=== PATIENT | female | born 1965 | race Caucasian/White ===

== ENCOUNTER → 2016-11-09 | Outpatient (REF) ==
[~2016-11-09] MED LIST: GLUCOPHAGE500 MG/TAB PO; GLUCOTROL 5M5 MG/TAB PO; IRON PO; MULTI VITAMINS1 TAB PO; NORCO 325 MG-51 TAB PO; SYNTHROID0.088 MG/T PO; VICTOZA6 MG/ML SC
[2016-11-09 15:47] LABS: THYROID STIMULATING HORMONE 2.02 uIU/mL (0.465-4.680)
== END ==
LOC: ZLAB.WCH 14:58
PROVIDERS: Internal Medicine
DX: Z01.89 Encounter for other specified special examinations (principal)

== ENCOUNTER → 2016-11-14 | Outpatient (CLI) | payer BC | LOC: SUN.DIA 13:29 | DX: E11.65 Type 2 diabetes mellitus with hyperglycemia (principal); Z79.84 Long term (current) use of oral hypoglycemic drugs; Z68.1 Body mass index [BMI] 19.9 or less, adult; Z71.3 Dietary counseling and surveillance; Z87.891 Personal history of nicotine dependence | CPT/HCPCS: G0108 ==

== ENCOUNTER → 2016-11-15 | Outpatient (CLI) | payer BC | LOC: SUN.DIA 13:08 | DX: E11.65 Type 2 diabetes mellitus with hyperglycemia (principal); Z79.4 Long term (current) use of insulin; Z71.3 Dietary counseling and surveillance | CPT/HCPCS: G0108 ==

== ENCOUNTER → 2016-11-28 | Outpatient (CLI) | payer BC | LOC: SUN.DIA 10:10 | DX: E11.65 Type 2 diabetes mellitus with hyperglycemia (principal); Z68.1 Body mass index [BMI] 19.9 or less, adult; Z79.4 Long term (current) use of insulin; Z71.3 Dietary counseling and surveillance; E78.5 Hyperlipidemia, unspecified | CPT/HCPCS: G0108 ==

== ENCOUNTER → 2017-04-12 | Outpatient (REF) ==
[2017-04-12 18:51] LABS: THYROID STIMULATING HORMONE 1.84 uIU/mL (0.465-4.680)
== END ==
LOC: ZLAB.WCH 18:07
PROVIDERS: Internal Medicine
DX: Z01.89 Encounter for other specified special examinations (principal)

== ENCOUNTER → 2017-07-12 | Outpatient (REF) ==
[2017-07-12 15:03] LABS: TOTAL IRON BINDING CAPACITY 308 ug/dL (265-497)
[2017-07-12 15:33] LABS: FERRITIN 34 ng/mL (11-264)
== END ==
LOC: ZLAB.WCH 14:29
PROVIDERS: Internal Medicine
DX: Z01.89 Encounter for other specified special examinations (principal)

== ENCOUNTER → 2018-02-19 | Outpatient (CLI) | payer BC ==
[2018-02-19] VITALS (15 sets, daily range): BP systolic 121–161; BP diastolic 56–76; PULSE 94–112
[~2018-02-19] VITALS: Ht 160 cm; Wt 60.0 kg
[~2018-02-19] MED LIST changes: +CELEXA 20MG20 MG/TAB PO; +LANTUS100 U/ML SQ; +NOVOLOG 100U100 U/M1 SQ; +XYZAL5 MG PO
== END ==
LOC: COL.RAD 02-11 10:00
DX: K76.0 Fatty (change of) liver, not elsewhere classified (principal); I85.00 Esophageal varices without bleeding; D69.6 Thrombocytopenia, unspecified; D64.9 Anemia, unspecified; E11.9 Type 2 diabetes mellitus without complications
CPT/HCPCS: J2250; J3010

== ENCOUNTER → 2018-09-12 | Outpatient (CLI) | payer BC | LOC: COL.RAD 09-10 09:45 | DX: K74.60 Unspecified cirrhosis of liver (principal); D69.6 Thrombocytopenia, unspecified; R16.1 Splenomegaly, not elsewhere classified ==

== ENCOUNTER 2018-10-27 20:08 | Emergency (ER) | payer BC ==
[~2018-10-27] VITALS: Ht 162.6 cm; Wt 56.8 kg
[2018-10-27 20:56] LABS: GASTROCCULT POSITIVE
[2018-10-27 21:07] LABS: HEMATOCRIT 21.9 % (37.0-47.0); HEMOGLOBIN 7.3 g/dl (12.5-16.0); MEAN CELL VOLUME 117 fl (80.0-100.0); MEAN CORPUSCULAR HEMOGLOBIN 39 pg (27.0-31.0); MEAN CORPUSCULAR HGB CONC 33 g/dl (33.0-37.0); MEAN PLATELET VOLUME 10.8 fl (7.4-10.4); RED BLOOD COUNT 1.87 M/mm3 (4.10-5.30); REDCELL DISTRIBUTION WIDTH-CV 15.9 % (11.5-14.5)
[2018-10-27 21:08] LABS: PLATELET COUNT 54 K/mm3 (130-400)
[2018-10-27] MEDS ORDERED: ATIVAN 0.50.5 MG/TAB PO (21:09)
[2018-10-27] MEDS ORDERED: ALDACTONE50 MG PO (21:10)
[2018-10-27] MEDS ORDERED: KLOR-CON M2020 MEQ PO (21:11)
[2018-10-27] MEDS ORDERED: LASIX 20MG TABL20 MG PO (21:11)
[2018-10-27 21:13] LABS: INR 2.2 (0.8-3.0); PROTHROMBIN TIME 24.5 SECONDS (9.7-12.8)
[2018-10-27 21:18] LABS: ALBUMIN 2.2 gm/dL (3.5-5.0); BILIRUBIN,TOTAL 4.2 mg/dL (0.0-1.0); CALCIUM 7.8 mg/dL (8.4-10.2); CREATININE, serum 0.74 mg/dL (0.52-1.25); POTASSIUM 4.5 mmol/L (3.4-5.0); TOTAL PROTEIN 5.4 gm/dL (6.4-8.2)
[2018-10-27 21:22] VITALS: BP 142/63; PULSE 120; TEMP 97.8
[2018-10-27 21:34] VITALS: BP 142/64; PULSE 125; TEMP 98.2
[2018-10-27 21:46] VITALS: BP 156/68; PULSE 122; TEMP 98.4
[2018-10-27 22:04] VITALS: BP 169/68; PULSE 122
[2018-10-27 22:21] LABS: ANISOCYTOSIS 1+; BAND 1 % (0-10); BASOPHIL 1 % (0-2); EOSINOPHIL 2 % (0-4); LYMPHOCYTE 14 % (20.0-51.0); NEUTROPHILS 79 % (42.0-75.2); PLATELET ESTIMATE DECREASED (NORMAL)
[2018-10-27 22:22] LABS: OVALOCYTES 1+; TEAR DROP CELLS 2+
== END 2018-10-27 22:16 | disposition short-term general hospital (02) ==
LOC: COL.ER 20:08
PROVIDERS: Emergency Medicine
DX: I85.00 Esophageal varices without bleeding (principal); K92.2 Gastrointestinal hemorrhage, unspecified; R57.1 Hypovolemic shock
CPT/HCPCS: C9113; J2354; J2405; J7030; J7040; P9016

== ENCOUNTER 2019-01-03 17:27 | Emergency (ER) | payer BC ==
[~2019-01-03] VITALS: Ht 162.6 cm; Wt 58.2 kg
[~2019-01-03 17:27] MED LIST changes: +ALDACTONE50 MG PO; +ATIVAN 0.50.5 MG/TAB PO; +KLOR-CON M2020 MEQ PO; +LASIX 20MG TABL20 MG PO
[2019-01-03 17:34] VITALS: TEMP 98.8
[2019-01-03] MEDS ORDERED: CORGARD20 MG PO (19:17)
[2019-01-03 20:11] LABS: BASO % 0.4 % (0.0-2.0); EOS % 0.4 % (0-4.0); GRAN # 1.6 (1.4-6.5); GRAN % 67.5 % (42.2-75.2); LYMPH # 0.4 (1.2-3.4); LYMPH % 16.9 % (20.0-51.0); MEAN CELL VOLUME 114 fl (80.0-100.0); MEAN CORPUSCULAR HGB CONC 35 g/dl (33.0-37.0); MEAN PLATELET VOLUME 11.9 fl (7.4-10.4); MONO # 0.3 (0.1-0.6); RED BLOOD COUNT 2.29 M/mm3 (4.10-5.30); REDCELL DISTRIBUTION WIDTH-CV 17.8 % (11.5-14.5)
[2019-01-03 20:22] LABS: ALBUMIN 2.5 gm/dL (3.5-5.0); C-REACTIVE PROTEIN 1.8 mg/dL (0.0-0.9); CALCIUM 7.8 mg/dL (8.4-10.2); CREATININE, serum 0.81 (0.52-1.25); POTASSIUM 3.8 mmol/L (3.4-5.0); TOTAL PROTEIN 6.1 gm/dL (6.4-8.2)
[2019-01-03 20:33] LABS: HEMATOCRIT 26.1 % (37.0-47.0); HEMOGLOBIN 9.1 g/dl (12.5-16.0); MEAN CORPUSCULAR HEMOGLOBIN 40 pg (27.0-31.0)
[2019-01-03 20:35] LABS: PLATELET COUNT 30 K/mm3 (130-400)
[2019-01-03] MEDS ORDERED: VANCOCIN H125 MG/CAP PO (21:32)
[2019-01-03 21:54] VITALS: BP 116/53; PULSE 80
== END 2019-01-03 22:10 | disposition home or self-care (01) ==
LOC: COL.ER 17:27
PROVIDERS: Emergency Medicine
DX: A04.72 Enterocolitis due to Clostridium difficile, not specified as recurrent (principal); D69.6 Thrombocytopenia, unspecified; K72.90 Hepatic failure, unspecified without coma; J06.9 Acute upper respiratory infection, unspecified; E11.9 Type 2 diabetes mellitus without complications; Z79.4 Long term (current) use of insulin
CPT/HCPCS: J1815

== ENCOUNTER 2019-07-04 15:42 | Outpatient (RCR) | payer BC ==
[~2019-07-04] VITALS: Ht 162.6 cm; Wt 52.8 kg
[~2019-07-04 15:42] MED LIST changes: +CORGARD20 MG PO; +VANCOCIN H125 MG/CAP PO
[2019-07-04 16:00] VITALS: BP 120/56; PULSE 82; TEMP 98.1
[2019-07-04] MEDS ORDERED: PROGRAF5 MG PO (16:33)
[2019-07-04] MEDS ORDERED: PREDNISONE 5MG5 MG PO (16:34)
[2019-07-04] MEDS ORDERED: NORVASC 5MG5 MG/TAB PO (16:35)
[2019-07-04] MEDS ORDERED: MELATIN 3 MG-11 TAB PO (16:36)
[2019-07-04] MEDS ORDERED: NS 10ML VIAL 1010 ML IJ (16:36)
[2019-07-04] MEDS ORDERED: FLEXERIL5 MG PO (16:38)
[2019-07-04] MEDS ORDERED: SEPTRA DS 8001 TAB PO (16:39)
[2019-07-04] MEDS ORDERED: PROTONIX 40MG T40 MG PO (16:40)
[2019-07-04] MEDS ORDERED: CALCIUM CARB W/1 TA1 PO (16:40)
[2019-07-04] MEDS ORDERED: TYLENOL 325MG325 MG PO (16:41)
[2019-07-04 17:51] VITALS: BP 159/73; PULSE 87; TEMP 98.4
[2019-07-05 08:15] LABS: CALCIUM 9.4 mg/dL (8.4-10.2); CREATININE, serum 1.43 (0.52-1.25); POTASSIUM 4.7 mmol/L (3.4-5.0)
== END 2019-07-05 08:54 | disposition home or self-care (01) ==
LOC: EUO 15:42
PROVIDERS: Internal Medicine
DX: E86.0 Dehydration (principal); Z94.4 Liver transplant status
CPT/HCPCS: J7030

== ENCOUNTER 2019-08-30 23:53 | Emergency (ER) | payer BC ==
[~2019-08-30] VITALS: Ht 162.6 cm; Wt 50.9 kg
[~2019-08-30 23:53] MED LIST changes: +CALCIUM CARB W/1 TA1 PO; +FLEXERIL5 MG PO; +MELATIN 3 MG-11 TAB PO; +NORVASC 5MG5 MG/TAB PO; +NS 10ML VIAL 1010 ML IJ; +PREDNISONE 5MG5 MG PO; +PROGRAF5 MG PO; +PROTONIX 40MG T40 MG PO; +SEPTRA DS 8001 TAB PO; +TYLENOL 325MG325 MG PO
[2019-08-31 01:12] LABS: ALBUMIN 4.2 gm/dL (3.5-5.0); BILIRUBIN,TOTAL 0.3 mg/dL (0.0-1.0); C-REACTIVE PROTEIN 0.5 mg/dL (0.0-0.9); CREATININE, serum 1.62 (0.52-1.25); MAGNESIUM 2.1 mg/dL (1.6-2.3); PHOSPHOROUS 4.7 mg/dL (2.5-4.5); POTASSIUM 4.6 mmol/L (3.4-5.0); TOTAL PROTEIN 7.4 gm/dL (6.4-8.2)
[2019-08-31 01:13] LABS: MEAN CELL VOLUME 104 fl (80.0-100.0); MEAN CORPUSCULAR HEMOGLOBIN 35 pg (27.0-31.0); MEAN CORPUSCULAR HGB CONC 34 g/dl (33.0-37.0); MEAN PLATELET VOLUME 9.3 fl (7.4-10.4); PLATELET COUNT 138 K/mm3 (130-400); RED BLOOD COUNT 2.88 M/mm3 (4.10-5.30); REDCELL DISTRIBUTION WIDTH-CV 15.9 % (11.5-14.5)
[2019-08-31 01:40] LABS: HEMATOCRIT 29.8 % (37.0-47.0)
[2019-08-31 02:00] LABS: BAND 3 % (0-10); EOSINOPHIL 6 % (0-4); NEUTROPHILS 70 % (42.0-75.2); PLATELET ESTIMATE NORMAL (NORMAL)
[2019-08-31 02:01] LABS: LYMPHOCYTE 20 % (20.0-51.0)
[2019-08-31 02:24] LABS: INR 0.9 (0.8-3.0)
[2019-08-31 02:27] LABS: PARTIAL THROMBOPLASTIN TIME 27.7 SECONDS (26.0-37.0)
[2019-08-31 02:48] LABS: COLLECTION METHOD CLEAN CATCH
[2019-08-31 02:50] LABS: LACTIC ACID 1.6 mmol/L (0.4-2.0)
[2019-08-31 02:53] LABS: PH 5 (5-8); SQUAMOUS EPITHELIAL None Seen /hpf; URINE APPEARANCE Clear; URINE BACTERIA None Seen /hpf; URINE BILIRUBIN Negative (NEGATIVE); URINE BLOOD Negative (NEGATIVE); URINE COLOR Straw; URINE GLUCOSE Negative (NEGATIVE); URINE KETONE Negative (NEGATIVE); URINE LEUKOCYTE ESTERASE Negative (NEGATIVE); URINE NITRATE Negative (NEGATIVE); URINE PROTEIN(semi-quant) Negative (NEGATIVE); URINE RBC 0-2 /hpf; URINE UROBILINOGEN Negative (NEGATIVE)
[2019-08-31] MEDS ORDERED: VALTREX1 GM PO (08:52)
[2019-08-31 09:08] VITALS: BP 145/61; PULSE 97; TEMP 98.2
== END 2019-08-31 09:10 | disposition short-term general hospital (02) ==
LOC: COL.ER 23:53
PROVIDERS: Emergency Medicine
DX: B02.29 Other postherpetic nervous system involvement (principal)
CPT/HCPCS: J1170; J7030

== ENCOUNTER 2022-05-25 21:41 | Emergency (ER) | payer MEDICARE, BC ==
[~2022-05-25] VITALS: Ht 160 cm; Wt 54.5 kg
[~2022-05-25 21:41] MED LIST changes: +VALTREX1 GM PO
[2022-05-25 22:33] LABS: HEMOGLOBIN 11.6 g/dl (12.5-16.0); MEAN CELL VOLUME 95 fl (80.0-100.0); MEAN CORPUSCULAR HEMOGLOBIN 34 pg (27-31); MEAN CORPUSCULAR HGB CONC 36 g/dl (33.0-37.0); MEAN PLATELET VOLUME 9.1 fl (7.4-10.4); PLATELET COUNT 152 K/mm3 (130-400); RED BLOOD COUNT 3.45 M/mm3 (4.10-5.30); REDCELL DISTRIBUTION WIDTH-CV 13.2 % (11.5-14.5)
[2022-05-25 22:35] LABS: HEMATOCRIT 32.7 % (37.0-47.0)
[2022-05-25 22:52] LABS: ALBUMIN 3.7 gm/dL (3.5-5.0); CALCIUM 9.3 mg/dL (8.4-10.2); CREATININE, serum 1.1 mg/dL (0.57-1.11); POTASSIUM 3.6 mmol/L (3.5-4.5); TOTAL PROTEIN 7.3 gm/dL (6.2-8.1)
[2022-05-25 22:58] LABS: BAND 19 % (0-10); EOSINOPHIL 1 % (0-4); LYMPHOCYTE 15 % (20.0-51.0); METAMYELOCYTE 3 % (0-0); NEUTROPHILS 56 % (42.0-75.2); PLATELET ESTIMATE NORMAL (NORMAL)
[2022-05-25 23:19] LABS: COLLECTION METHOD CLEAN CATCH
[2022-05-25 23:27] LABS: SQUAMOUS EPITHELIAL None Seen /hpf (0-10); URINE BACTERIA None Seen /hpf (NONE SEEN)
[2022-05-25 23:28] LABS: URINE APPEARANCE Clear (CLEAR/HAZY); URINE BLOOD TRACE-INTACT (NEGATIVE); URINE COLOR Yellow (YELLOW); URINE GLUCOSE Negative (NEGATIVE); URINE KETONE Negative (NEGATIVE); URINE NITRATE Negative (NEGATIVE); URINE PROTEIN(semi-quant) TRACE (NEGATIVE); URINE UROBILINOGEN 0.2 E.U/dL (0.2-1.0)
[2022-05-26] MEDS ORDERED: PROGRAF 0.5MG0.5 MG PO (01:39)
[2022-05-26] MEDS ORDERED: VITAMIN D31000 I1 PO (01:40)
[2022-05-26] MEDS ORDERED: B-12 250 MCG (01:40)
[2022-05-26] MEDS ORDERED: CALCIUM 600MG+D1 TAB PO (01:41)
[2022-05-26 06:28] VITALS: TEMP 98.4
[2022-05-26 10:08] VITALS: BP 130/66; PULSE 108
== END 2022-05-26 10:15 | disposition short-term general hospital (02) ==
LOC: COL.ER 21:41
PROVIDERS: Emergency Medicine
DX: R50.9 Fever, unspecified (principal); R74.01 Elevation of levels of liver transaminase levels; D72.819 Decreased white blood cell count, unspecified; Z88.0 Allergy status to penicillin; Z94.4 Liver transplant status; Z92.25 Personal history of immunosuppression therapy; Z20.822 Contact with and (suspected) exposure to COVID-19
CPT/HCPCS: J0692; J3370; J7030; J7050; J7507

== ENCOUNTER 2022-06-28 15:10 | Emergency (ER) | payer MEDICARE, BC ==
[~2022-06-28] VITALS: Ht 160 cm; Wt 57.3 kg
[~2022-06-28 15:10] MED LIST changes: +B-12 250 MCG; +CALCIUM 600MG+D1 TAB PO; +PROGRAF 0.5MG0.5 MG PO; +VITAMIN D31000 I1 PO
[2022-06-28 15:21] VITALS: TEMP 97.3
[2022-06-28 17:07] LABS: ALBUMIN 2.6 gm/dL (3.5-5.0); BILIRUBIN,TOTAL 1.1 mg/dL (0.2-1.2); C-REACTIVE PROTEIN 4.5 mg/dL (0.00-0.50); CALCIUM 8.4 mg/dL (8.4-10.2); CREATININE, serum 1.48 mg/dL (0.57-1.11); POTASSIUM 4.6 mmol/L (3.5-4.5); TOTAL PROTEIN 7.2 gm/dL (6.2-8.1)
[2022-06-28 17:12] LABS: TROPONIN-I 0.01 ng/mL (0.00-0.033)
[2022-06-28 17:12] LABS: MEAN CELL VOLUME 92 fl (80.0-100.0); MEAN CORPUSCULAR HEMOGLOBIN 31 pg (27-31); MEAN CORPUSCULAR HGB CONC 33 g/dl (33.0-37.0); MEAN PLATELET VOLUME 9.6 fl (7.4-10.4); PLATELET COUNT 256 K/mm3 (130-400); RED BLOOD COUNT 3.61 M/mm3 (4.10-5.30); REDCELL DISTRIBUTION WIDTH-CV 18.2 % (11.5-14.5)
[2022-06-28 17:13] LABS: HEMATOCRIT 33.1 % (37.0-47.0)
[2022-06-28 17:15] VITALS: BP 162/63; PULSE 92
[2022-06-28 17:22] LABS: COLLECTION METHOD CLEAN CATCH
[2022-06-28 17:32] LABS: PH 5.5 (5.0-8.5); URINE APPEARANCE Clear (CLEAR/HAZY); URINE BLOOD TRACE-INTACT (NEGATIVE); URINE COLOR Yellow (YELLOW); URINE GLUCOSE Negative (NEGATIVE); URINE KETONE Negative (NEGATIVE); URINE NITRATE Negative (NEGATIVE); URINE PROTEIN(semi-quant) Negative (NEGATIVE); URINE UROBILINOGEN 0.2 E.U/dL (0.2-1.0)
[2022-06-28 17:38] LABS: SQUAMOUS EPITHELIAL 0-2 /hpf (0-10); URINE BACTERIA None Seen /hpf (NONE SEEN); URINE RBC 0-2 /hpf (0-2)
[2022-06-28 17:52] LABS: ANISOCYTOSIS 2+; BAND 3 % (0-10); HYPOCHROMIA 1+; LYMPHOCYTE 39 % (20.0-51.0); NEUTROPHILS 48 % (42.0-75.2); NUCLEATED RED BLOOD CELL 1 (0-6); PLATELET ESTIMATE NORMAL (NORMAL)
== END 2022-06-28 17:25 | disposition home or self-care (01) ==
LOC: COL.ER 15:10
PROVIDERS: Family Medicine
DX: E86.0 Dehydration (principal); R55 Syncope and collapse
CPT/HCPCS: J7030

== ENCOUNTER 2022-11-03 15:20 | Outpatient (RCR) | payer MEDICARE, BC | END 2022-11-07 | disposition home or self-care (01) | LOC: COL.CR | DX: Z48.812 Encounter for surgical aftercare following surgery on the circulatory system (principal); Z95.1 Presence of aortocoronary bypass graft; I25.2 Old myocardial infarction ==

== ENCOUNTER 2022-11-15 15:02 | Outpatient (RCR) | payer MEDICARE, BC | END 2022-12-05 | disposition home or self-care (01) | LOC: COL.CR | DX: Z48.812 Encounter for surgical aftercare following surgery on the circulatory system (principal); Z95.1 Presence of aortocoronary bypass graft; I25.2 Old myocardial infarction ==

== ENCOUNTER 2022-12-15 15:21 | Outpatient (RCR) | payer MEDICARE, BC | END 2023-01-05 | disposition home or self-care (01) | LOC: COL.CR | DX: Z48.812 Encounter for surgical aftercare following surgery on the circulatory system (principal); Z95.1 Presence of aortocoronary bypass graft; I25.2 Old myocardial infarction ==

== ENCOUNTER 2023-01-19 15:53 | Outpatient (RCR) | payer MEDICARE, BC | END 2023-02-04 | disposition home or self-care (01) | LOC: COL.CR | DX: Z48.812 Encounter for surgical aftercare following surgery on the circulatory system (principal); Z95.1 Presence of aortocoronary bypass graft; I25.2 Old myocardial infarction ==

== ENCOUNTER 2024-05-06 14:24 | Outpatient (RCR) | payer MEDICARE, BC | END 2024-05-07 | disposition home or self-care (01) | LOC: COL.CR | DX: I27.20 Pulmonary hypertension, unspecified (principal) | CPT/HCPCS: G0238; G0239 ==

== ENCOUNTER 2024-07-03 16:25 | Outpatient (RCR) | payer MEDICARE, BC | END 2024-07-07 | disposition home or self-care (01) | LOC: COL.CR | DX: Z02.89 Encounter for other administrative examinations (principal) | CPT/HCPCS: G0239 ==